=== PATIENT | male | born 1985 | race Caucasian/White ===

== ENCOUNTER 2016-09-24 00:22 | Emergency (ER) | payer OTHER ==
[~2016-09-24] VITALS: Ht 187.9 cm; Wt 133.8 kg
[~2016-09-24 00:22] MED LIST: NAPROSYN500 MG PO; PENICILLIN VK500 MG PO; Peridex 473 ML473 ML PO
[2016-09-24] MEDS ORDERED: CLINDAMYCIN HC300 MG PO (00:35)
[2016-09-24] MEDS ORDERED: ANAPROX DS550 MG PO (00:35)
== END 2016-09-24 01:10 | disposition home or self-care (01) ==
LOC: ED 00:22
DX: K08.89 Other specified disorders of teeth and supporting structures (principal); F17.200 Nicotine dependence, unspecified, uncomplicated